=== PATIENT | female | born 1990 | race Caucasian/White ===

== ENCOUNTER 2020-01-24 11:07 | Emergency (ER) | payer MEDICAID ==
[~2020-01-24] VITALS: Ht 154.9 cm; Wt 80.7 kg
[2020-01-24 11:31] VITALS: BP 121/80
[2020-01-24] MEDS ORDERED: SUMATRIPTAN SUCCINATE 6MG/0.5ML VIAL SUBCUT ONE (12:00)
[2020-01-24] MEDS ORDERED: ONDANSETRON 4MG ODT PO ONE (12:00)
[2020-01-24] MEDS ORDERED: KETOROLAC 60MG/2ML VIAL IM ONE (12:45)
== END 2020-01-24 13:35 | disposition home or self-care (01) ==
LOC: ER 11:07
DX: R51 Headache (principal)
CPT/HCPCS: 81025; 96372; 99284; J1885; J3030; Q0162